=== PATIENT | female | born 1980 | race Caucasian/White ===

== ENCOUNTER 2019-07-21 16:33 | Emergency (ER) | payer OTHER ==
[~2019-07-21] VITALS: Ht 175.3 cm; Wt 91.2 kg
[2019-07-21 16:59] VITALS: Ht 175.3 cm; Wt 91.2 kg
[2019-07-21 19:00] VITALS: BP 110/68
== END 2019-07-21 19:00 | disposition home or self-care (01) ==
LOC: ED 16:33
DX: G44.209 Tension-type headache, unspecified, not intractable (principal)
CPT/HCPCS: J0780; J1885